=== PATIENT | female | born 1960 | race Caucasian/White ===

== ENCOUNTER → 2021-11-15 | Outpatient (CLI) | payer OTHER ==
[~2021-11-15] MED LIST: CELEXA40 MG PO; DAILY VALUE1 EACH PO; KLONOPIN0.5 MG PO; LOW DOSE ASPIRI81 MG PO; PRAVASTATIN SOD20 MG PO; VOLTAREN EC 7575 MG PO; ZYRTEC10 MG PO
[2021-11-15 13:26] LABS: HEMOGLOBIN 13.1 gm/dl (12.3-15.3); RED BLOOD COUNT 4.54 M/UL (4.00-5.10); WHITE BLOOD COUNT 6.3 K/UL (4.5-11.0)
== END ==
LOC: OPSV2 12:26
PROVIDERS: Anesthesiology
DX: Z01.818 Encounter for other preprocedural examination (principal); N81.9 Female genital prolapse, unspecified
CPT/HCPCS: 36415; 71046; 81001; 85025; 93005

== ENCOUNTER → 2021-11-22 | Day surgery (SDC) | payer OTHER ==
[~2021-11-22] MED LIST changes: +DOCUSATE SODIU250 MG PO; +HYDROCODONE-AC1 EACH PO; +IBUPROFEN600 MG PO
== END | disposition home or self-care (01) ==
LOC: OR 05:26
DX: N81.9 Female genital prolapse, unspecified (principal); N72 Inflammatory disease of cervix uteri; N80.0 Endometriosis of uterus; R15.0 Incomplete defecation; N39.46 Mixed incontinence; E78.5 Hyperlipidemia, unspecified; K44.9 Diaphragmatic hernia without obstruction or gangrene; M19.90 Unspecified osteoarthritis, unspecified site; F41.9 Anxiety disorder, unspecified; Z79.82 Long term (current) use of aspirin; Z79.899 Other long term (current) drug therapy
CPT/HCPCS: C1769; J0690; J1100; J1170; J1885; J2001; J2250; J2405; J2704; J3010; J7050